=== PATIENT | female | born 1990 | race Two or more races ===

== ENCOUNTER → 2024-09-10 | Outpatient (CLI) | payer MEDICAID, SELFPAY ==
--- NOTE | 2024-09-10 14:30 | XR_ITS ---
Examination: Ultrasound soft tissue neck TECHNIQUE: High resolution grayscale sonographic images soft tissue neck Exam date and time: September 10, 2024 1452 hours INDICATIONS: Palpable lump on the left ear noticed beginning 2 months ago FINDINGS: Lymph node 16 x 4 x 12 mm at the area concern in the soft tissue behind the left ear IMPRESSION: Probable lymph node in the soft tissue at the area concern, recommend 3 month follow-up ultrasound soft tissue
== END | disposition home or self-care (01) ==
LOC: CDIM 14:32
PROVIDERS: PCP Family Medicine; Referring Provider Family Medicine; Visit Provider Family Medicine
DX: R22.9 Localized swelling, mass and lump, unspecified (principal)
CPT/HCPCS: 76536